=== PATIENT | female | born 1995 | race African-American/Black ===

== ENCOUNTER 2021-01-14 13:59 | Emergency (ER) | payer MEDICAID, OTHER ==
[~2021-01-14] VITALS: Ht 157.5 cm; Wt 57.6 kg
[2021-01-14] MEDS ORDERED: MIDAZOLAM HCL 2MG/2ML 2ml VIAL (1mg/ml) IV ONE (14:15)
[2021-01-14 14:57] VITALS: BP 115/74
== END 2021-01-14 14:59 | disposition home or self-care (01) ==
LOC: ER 13:59
DX: F43.22 Adjustment disorder with anxiety (principal)
CPT/HCPCS: 93005; 96374; 99283; J2250